=== PATIENT | female | born 1985 | race African-American/Black ===

== ENCOUNTER 2016-08-17 22:19 | Inpatient (IN) | payer OTHER ==
[~2016-08-17] VITALS: Ht 167.6 cm; Wt 99.8 kg
[~2016-08-17 22:19] MED LIST: BENTYL20 MG PO; GILENYA0.5 MG PO; PRENATABS RX T1 EACH PO; TYLENOL EXTRA500 M2 PO; VALTREX1000 MG PO; VITAMIN D50000 IU PO
[2016-08-17 23:02] LABS: ABSOLUTE BASOPHIL COUNT 0 /CUMM (0.0-0.2); ABSOLUTE EOSINOPHIL COUNT 0 /CUMM (0.0-0.7); ABSOLUTE GRANULOCYTE CT 10.4 /CUMM (1.4-6.5); ABSOLUTE LYMPH COUNT 2.1 /CUMM (1.2-3.4); ABSOLUTE MONOCYTE COUNT 0.7 /CUMM (0.10-0.60); BASOPHIL % 0.3 % (0.0-2.0); EOSINOPHIL % 0.3 % (0-5); GRANULOCYTE % 78.3 % (42.2-75.2); HEMATOCRIT 41.2 % (37-47); MEAN CORPUSCULAR HGB 32.5 PG (27.0-31.0); MEAN CORPUSCULAR HGB CONC 33.3 G/DL (33.0-37.0); MEAN CORPUSCULAR VOLUME 97.5 FL (81.0-99.0); MEAN PLATELET VOLUME 10.6 FL (7.4-10.4); PLATELET COUNT 159 /CUMM (130-400); RBC DISTRIBUTION WIDTH 13.6 % (11.5-14.5); RED BLOOD CELL CT 4.22 /CUMM (4.20-5.40); WHITE BLOOD CELL COUNT 13.3 /CUMM (4.8-10.8)
--- NOTE | 2016-08-18 00:14 | History & Physical ---
General Information and HPI MD Statement: I have seen and personally examined PATY HUGGINS and documented this H&P. The patient is a 31 year old female at []39 weeks and [4] days gestation who presented with a chief complaint of []LABOR. 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 Para: 0 Last Menstrual Period: 11/14/15 Estimated Delivery Date: 08/20/16 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 EENTM: Reports: no symptoms. Cardiovascular: Reports: no symptoms. Respiratory: Reports: no symptoms. GI: Reports: abdominal pain. Genitourinary: Reports: pain. Musculoskeletal: Reports: back pain. Skin: Reports: no symptoms. Neurological/Psychological: Reports: no symptoms. Hematologic/Endocrine: Reports: no symptoms. Immunologic/Allergic: Reports: no symptoms. All Other Systems: Reviewed and Negative Exam & Diagnostic Data Last 24 Hrs of Vital Signs/I&O Intake & Output 08/18 0800 06/12 0000 08/17 1600 Intake Total Output Total Balance Patient 220 lb Weight Obstetric Exam Wgt Gained During : 40 Pelvimetry: GYNECOID Dilation (cm): 9 Effacement (%): 100 Station: 0 Membranes: intact Fluid: unknown Fundal Height (cm): 40 Multiple Gestation? No Contractions: Q2-3 #1 - FHR Baseline: 130 Category: 1 Estimated Weight: 7 Presentation: CEPHALIC Patient for Induction? No Labs Blood Type & Rh: O POS Antibody Screen: NEG Hct/Hgb & Platelets #1: Hct/Hgb & Platelets #2: Rubella: IMM VDRL #1: NR VDRL #2: NR HbsAg: NEG HIV #1: NEG HIV #2 NEG 1 Hr P Group B Strep: POSITIVE Initial Ultrasound: WNL Anatomy Ultrasound: WNL Ultrasound for EFW: 6.5 Genetic Testing: WML Last 24 Hrs of Labs/Antonio: Laboratory Tests 08/17/162234: CBC w Diff NO MAN DIFF REQ, RBC 4.22, MCV 97.5, MCH 32.5 H, RDW 13.6, MPV 10.6 H, Gran % 78.3 H, Lymphocytes % 15.7 L, Monocytes % 5.4, Eosinophils % 0.3, Basophils % 0.3, Absolute Granulocytes 10.4 H, Absolute Lymphocytes 2.1, Absolute Monocytes 0.7 H, Absolute Eosinophils 0, Absolute Basophils 0, PUBS MCHC 33.3 ITS Data ITS Data Unobtainable at this time Assessment/Plan Assessment/Plan: ACTIVE LABOR AT TERM POS GBS BOWI EXPENCTANT MGMT IV CLINDA As Ranked By This Provider Problem List: 1. Core Measures/Miscellaneous Venous Thromboembolism VTE Risk Factors: / VTE Contraindications: No Contraindications VTE Diagnosis: No Beta George Is Beta George a Home Med? No Antibiotics Is Patient on Antibiotics? No
--- NOTE | 2016-08-18 00:16 | Labor & Delivery Summary ---
Delivery Summary Vaginal Delivery: Vaginal: vertex Episiotomy/Lacerations: Episiotomy/Lacerations: EPIS Type: RML Repair: LAYERED 3-0 Anesthesia: LOCAL Placenta: Placenta: spontanteous, normal, 3 vessel Anesthesia: LOCAL, NO2 Baby's Weight: P STS Apgars - 1 Min: 9 Apgars - 5 Min: 9
[2016-08-18 07:52] LABS: ABSOLUTE BASOPHIL COUNT 0 /CUMM (0.0-0.2); ABSOLUTE EOSINOPHIL COUNT 0 /CUMM (0.0-0.7); ABSOLUTE LYMPH COUNT 1.7 /CUMM (1.2-3.4); EOSINOPHIL % 0 % (0-5); RED BLOOD CELL CT 3.52 /CUMM (4.20-5.40)
[2016-08-18 08:12] LABS: ABSOLUTE GRANULOCYTE CT 13.1 /CUMM (1.4-6.5); ABSOLUTE MONOCYTE COUNT 0.8 /CUMM (0.10-0.60); BASOPHIL % 0.3 % (0.0-2.0); MEAN CORPUSCULAR HGB 32.8 PG (27.0-31.0); MEAN CORPUSCULAR HGB CONC 33.3 G/DL (33.0-37.0); MEAN CORPUSCULAR VOLUME 98.4 FL (81.0-99.0); MEAN PLATELET VOLUME 11.6 FL (7.4-10.4); PLATELET COUNT 140 /CUMM (130-400); RBC DISTRIBUTION WIDTH 13.6 % (11.5-14.5); WHITE BLOOD CELL COUNT 15.7 /CUMM (4.8-10.8)
[2016-08-18 08:14] LABS: HEMATOCRIT 34.6 % (37-47)
[2016-08-18 08:26] LABS: GRANULOCYTE % 83.9 % (42.2-75.2)
[2016-08-19] MEDS ORDERED: IBUPROFEN800 M1 PO (08:53)
[2016-08-19] MEDS ORDERED: DOCUSATE SODIU100 M3 PO (08:53)
== END 2016-08-19 10:24 | DRG 775 ==
LOC: CBCO 22:19 → GNO 22:32
PROVIDERS: ADMIT Obstetrics & Gynecology
PROC: 0W8NXZZ Division of Female Perineum, External Approach (ICD-10-PCS; principal; 2016-08-17)
PROC: 10E0XZZ Delivery of Products of Conception, External Approach (ICD-10-PCS; principal; 2016-08-17)
DX: O99.824 Streptococcus B carrier state complicating childbirth (principal); G35 Multiple sclerosis; O99.354 Diseases of the nervous system complicating childbirth; Z3A.39 39 weeks gestation of pregnancy; Z37.0 Single live birth
CPT/HCPCS: GNOP; GNOS; 80307; 81001

== ENCOUNTER 2017-11-05 02:59 | Inpatient (IN) | payer OTHER ==
[~2017-11-05] VITALS: Ht 167.6 cm; Wt 101.2 kg
[~2017-11-05 02:59] MED LIST changes: +DOCUSATE SODIU100 M3 PO; +IBUPROFEN800 M1 PO
[2017-11-05 04:38] LABS: ABSOLUTE BASOPHIL COUNT 0 /CUMM (0.0-0.2); ABSOLUTE EOSINOPHIL COUNT 0.1 /CUMM (0.0-0.7); ABSOLUTE GRANULOCYTE CT 5.4 /CUMM (1.4-6.5); ABSOLUTE LYMPH COUNT 2.1 /CUMM (1.2-3.4); ABSOLUTE MONOCYTE COUNT 0.5 /CUMM (0.10-0.60); BASOPHIL % 0.4 % (0.0-2.0); EOSINOPHIL % 1.1 % (0-5); GRANULOCYTE % 66.5 % (42.2-75.2); HEMATOCRIT 33.5 % (37-47); MEAN CORPUSCULAR HGB CONC 33.7 G/DL (33.0-37.0); MEAN PLATELET VOLUME 10.7 FL (7.4-10.4); PLATELET COUNT 164 /CUMM (130-400); RBC DISTRIBUTION WIDTH 13.4 % (11.5-14.5); RED BLOOD CELL CT 3.52 /CUMM (4.20-5.40); WHITE BLOOD CELL COUNT 8.1 /CUMM (4.8-10.8)
[2017-11-05 05:26] VITALS: BP 122/75
--- NOTE | 2017-11-05 13:25 | History & Physical Pre-Op ---
General Information and HPI History of Present Illness: 32yo lmp104/02/17 edc 11/12/17 with PROM and GBS care significant for MS treated early in with steroids. 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 EENTM: Reports: no symptoms. Cardiovascular: Reports: no symptoms. Respiratory: Reports: no symptoms. GI: Reports: no symptoms. Genitourinary: Reports: no symptoms. Musculoskeletal: Reports: no symptoms. Skin: Reports: no symptoms. Neurological/Psychological: Reports: no symptoms. Hematologic/Endocrine: Reports: no symptoms. Immunologic/Allergic: Reports: no symptoms. All Other Systems: Reviewed and Negative Exam & Diagnostic Data Last 24 Hrs of Vital Signs/I&O Vital Signs Date Time Temp Pulse Resp B/P B/P Pulse O2 O2 Flow FiO2 Mean Ox Delivery Rate 11/05 0526 122/75 Intake & Output 11/05 1600 11/05 0800 11/05 0000 Intake Total Output Total Balance Patient 223 lb Weight Physical Exam: Chest CTA CV ls S1S2 Abd: gravid, cephalic Ext: no c/c/e Assessment/Plan Assessment/Plan: PROM at 39 week, GBS IV clinda As Ranked By This Provider Problem List: 1.
--- NOTE | 2017-11-05 13:26 | Labor & Delivery Summary ---
Delivery Summary Vaginal Delivery: Vaginal: vertex Episiotomy/Lacerations: Episiotomy/Lacerations: none Placenta: Placenta: spontanteous, normal, 3 vessel Baby's Weight: P STS Apgars - 1 Min: 9 Apgars - 5 Min: 9
[2017-11-06 10:19] LABS: ABSOLUTE BASOPHIL COUNT 0 /CUMM (0.0-0.2); ABSOLUTE EOSINOPHIL COUNT 0.1 /CUMM (0.0-0.7); ABSOLUTE LYMPH COUNT 2.5 /CUMM (1.2-3.4); ABSOLUTE MONOCYTE COUNT 0.7 /CUMM (0.10-0.60); BASOPHIL % 0.5 % (0.0-2.0); EOSINOPHIL % 1.1 % (0-5); GRANULOCYTE % 67.4 % (42.2-75.2); HEMATOCRIT 31.3 % (37-47); MEAN CORPUSCULAR HGB 32.8 PG (27.0-31.0); MEAN CORPUSCULAR HGB CONC 34.2 G/DL (33.0-37.0); MEAN CORPUSCULAR VOLUME 95.8 FL (81.0-99.0); MEAN PLATELET VOLUME 12.1 FL (7.4-10.4); PLATELET COUNT 151 /CUMM (130-400); RBC DISTRIBUTION WIDTH 13.4 % (11.5-14.5); RED BLOOD CELL CT 3.27 /CUMM (4.20-5.40); WHITE BLOOD CELL COUNT 10.4 /CUMM (4.8-10.8)
--- NOTE | 2017-11-07 09:00 | PN- OBGYN ---
Surgical Brief Attending Note Brief Attending Note: Seen and examined Offers no complaints VSS Fundus firm Hct 31.3 Rh positive PPD #2 s/p vaginal Breast feeding benefits reviewed. She will try as she breast fed 3 months last time. Tdap she obtained one year ago. In my opinion no need for additional No findings of preeclampsia Mood is good. No history of depression DC home today with 4-6 [address] follow up with Dr Kelly.
[2017-11-07] MEDS ORDERED: IBUPROFEN800 M1 PO (09:02)
== END 2017-11-07 10:33 | DRG 775 ==
LOC: CBCO 02:59 → GNO 03:48
PROVIDERS: Obstetrics & Gynecology
PROC: 10E0XZZ Delivery of Products of Conception, External Approach (ICD-10-PCS; principal; 2017-11-05)
DX: O69.81X0 Labor and delivery complicated by cord around neck, without compression, not applicable or unspecified (principal); Z37.0 Single live birth; O99.824 Streptococcus B carrier state complicating childbirth; Z3A.39 39 weeks gestation of pregnancy
CPT/HCPCS: GNOS; 80307; 81001; 84112; J7120